=== PATIENT | female | born 1975 | race Caucasian/White ===

== ENCOUNTER 2021-03-07 13:32 | Outpatient (REF) | payer BC, SELFPAY ==
[2021-03-07 15:08] LABS: Binax Now Covid-19 Ag Negative (Negative)
[2021-03-07 15:09] LABS: Binax Internal Control QC Valid; Binax Lot number: 9864
== END 2021-03-07 13:33 | disposition home or self-care (01) ==
LOC: HO.LAB 13:32
PROVIDERS: Visit Provider Internal Medicine
DX: Z20.822 Contact with and (suspected) exposure to COVID-19 (principal)
CPT/HCPCS: 36415; C9803